=== PATIENT | female | born 1960 | race Caucasian/White ===

== ENCOUNTER 2017-04-22 10:27 | Day surgery (SDC) | payer MEDICARE ==
--- NOTE | 2017-04-21 20:46 | History and Physical Report ---
DATE: 04/21/2017. CHIEF COMPLAINT AND HISTORY OF CHIEF COMPLAINT: This patient presents with a history of postlaminectomy radiculitis. The patient was seen on April 09, 2017, with indications of an implanted laminectomy stimulator with a nonfunctional generator. She is here for battery or generator replacement. PAST MEDICAL HISTORY: Noncontributory. PAST SURGICAL HISTORY: Lumbar spinal surgery, spinal cord stimulator implant, foot surgery. MEDICATIONS ON ADMISSION: To be provided. ALLERGIES: None. REVIEW OF SYSTEMS: The patient is appropriate and in no acute distress. The remainder of the systems review shows degenerative arthritis, difficulty sleeping. SOCIAL HISTORY: Caffeine. FAMILY HISTORY: Noncontributory. PHYSICAL EXAMINATION: General: Height is 5 feet, 3 inches. Weight is 180 pounds. Vital Signs: Unavailable. HEENT: Within normal limits. Lungs: Clear. Heart: Regular rate and rhythm. Abdomen: Nontender. Musculoskeletal: Examination of the musculoskeletal system shows the midthoracic incision for the laminectomy lead and the generator incision at the left posterior gluteal margin. All incisions are intact. Sensory yeager are intact. Neurologic: Cranial nerves are intact. IMPRESSION: 1. POSTLUMBAR LAMINECTOMY SYNDROME, ICD-10 CODE M96.1. 2. LUMBAR RADICULITIS, ICD-10 CODE M54.16 AND M54.17. 3. SPINAL CORD STIMULATOR BATTERY DEPLETION. PLAN: The patient is here on an outpatient basis for battery replacement. The potential risks, side effects, and complications have been carefully reviewed and discussed. FREEDOM MCMILLAN D.O. Date & Time JOB NUMBER: [id number] cc: Jenny Khan
[~2017-04-22 10:27] MED LIST: ACETAMINOPHEN 1,000 MG/100 ML BTL IV ONE; CEFAZOLIN 2 Gram 2 GM/50 ML BAG IVPB ONE; FAMOTIDINE 20MG TABLET PO ONE; MECLIZINE 25 MG TABLET PO ONE; METOCLOPRAMIDE 10 MG TABLET PO ONE
[2017-04-22] MEDS ORDERED: *PACU ONLY* KETAMINE HCL 10 MG/ML (20ML) VIAL IV ONE (15:21)
[2017-04-22] MEDS ORDERED: LIDOCAINE 2% MDV (20MG/ML) 20ML VIAL IV ONE (15:21)
[2017-04-22] MEDS ORDERED: MIDAZOLAM HCL 2MG/2ML VIAL IV ONE (15:21)
[2017-04-22] MEDS ORDERED: PROPOFOL 10 MG/ML VIAL IV ONE (15:21)
[2017-04-22] MEDS ORDERED: HYDROMORPHONE HCL 2 MG/ML VIAL IV ONE (15:21)
[2017-04-22] MEDS ORDERED: BUPIVACAINE 0.5% W/EPI MPF 30 ML VIAL IVP ONE (15:27)
[2017-04-22] MEDS ORDERED: LIDOCAINE 1% W/EPI 1:200,000 MPF 30ML SQ ONE (15:27)
[2017-04-22] MEDS ORDERED: CEFAZOLIN 1G VIAL IM ONE (15:27)
--- NOTE | 2017-04-22 21:28 | Operative Note - [facility] ---
DATE OF SURGERY: 04/22/17 PREOPERATIVE DIAGNOSES: 1. POST LUMBAR LAMINECTOMY SYNDROME, ICD-10 CODE = M96.1. 2. LUMBAR RADICULITIS, ICD-10 CODE = M54.16, ICD-10 CODE = M54.17 3. SPINAL CORD STIMULATOR BATTERY DEPLETION. OPERATION: INCISION, SUBCUTANEOUS DISSECTION WITH REMOVAL AND REPLACEMENT OF INTERNAL PULSE GENERATOR FOR LAMINECTOMY SPINAL CORD STIMULATOR. SURGEON: FREEDOM MCMILLAN D.O. ANESTHESIA: LOCAL SEDATION. ANESTHESIA PROVIDER: LISA CHAMBERS CRNA INDICATIONS: This patient presents with a history of intractable postlaminectomy radiculitis, a laminectomy stimulator in place with a depleted battery. She is here for battery change. PROCEDURE: Intravenous line, vital sign monitoring, IV sedation. Prepped and draped with sterile technique. The previous incisional site at the left posterior gluteal margin was infiltrated with local. Incision made and subcutaneous dissection was conducted to the generator. The generator was exteriorized, from the leads. New generator placed onto the field, the generator interfaced with the indwelling leads. Antibiotic irrigation, Bovie for hemostasis. The generator was placed into the pouch and secured with nonabsorbable suture and then the incision was closed with Vicryl for fascia and running subcuticular Vicryl for skin. Dermabond closure. Complex reprogramming is performed confirming appropriate connections and impedance readings. She was transported to the Recovery Room stable showing no side effects from the procedure or the sedation. When fully awake, she was discharged. DISCHARGE INSTRUCTIONS: 1. The site is to remain clean and dry, although the Dermabond will allow showing. 2. Standard medications resumed including Levaquin, the antibiotic, 500 mg once a day for 14 days. 3. Activity levels will be kept low until she is seen in the office in 5 to 7 days to evaluate the site. Limit bend, lift, push, pull. All other instructions provided. Numbers to contact if problems given. She was then prepared for discharge. CC: Dr. Mandeep Koroma JOB NUMBER: [id number] MTDD
== END 2017-04-22 15:05 | disposition home or self-care (01) ==
LOC: SUR 10:27
PROVIDERS: ATTEND Pain Medicine Interventional Pain Medicine
DX: T85.695A Other mechanical complication of other nervous system device, implant or graft, initial encounter (principal); M96.1 Postlaminectomy syndrome, not elsewhere classified; M54.16 Radiculopathy, lumbar region; M54.17 Radiculopathy, lumbosacral region
CPT/HCPCS: 63685; 00300; 95972; J1170; J0690